=== PATIENT | male | born 1975 | race Caucasian/White ===

== ENCOUNTER 2021-11-20 09:40 | Observation (INO) | payer MEDICAID ==
[~2021-11-20] VITALS: Ht 170.2 cm; Wt 102.5 kg
[2021-11-20] VITALS (77 sets, daily range): BP systolic 76–136; BP diastolic 43–82
[2021-11-20 10:15] LABS: HEMATOCRIT 42.6 % (39.0-50.0); HEMOGLOBIN 15.1 g/dl (14.0-18.0); IMMATURE GRANULOCYTES 0.1 % (0.0-5.0); MEAN CELL VOLUME 94.7 fL CALC (80.0-100.0); MEAN CORPUSCULAR HGB 33.6 pG CALC (26.0-32.0); MEAN CORPUSCULAR HGB CONC 35.4 g/dL CAL (32.0-36.0); NEUT# 9.72 thou/uL (1.82-7.42); RED BLOOD COUNT 4.5 mill/uL (4.70-6.10)
[2021-11-20 10:30] LABS: ALBUMIN 4.6 g/dL (3.2-5.0); ALKALINE PHOSPHATASE 117 u/l (38-126); ANION GAP 15 (6-22 (CALC)); BILIRUBIN, TOTAL 0.8 mg/dL (0.0-1.4); BUN 12 mg/dL (9-20); BUN/CREATININE RATIO 15 (12-20 (CALC)); CARBON DIOXIDE 21 mmol/l (22-30); CHLORIDE 107 mmol/l (95-108); CREATININE 0.8 mg/dL (0.7-1.3); GFR FOR AFR.AMER. > 60 ML/MIN (>=60 (CALC)); GFR OTHER RACES > 60 ML/MIN (>=60 (CALC)); POTASSIUM 3.9 mmol/l (3.5-5.1); SGOT/AST 34 u/l (17-59); SODIUM 138 mmol/l (137-146); TOTAL PROTEIN 7.9 g/dL (6.3-8.2)
[2021-11-20 10:33] LABS: D-DIMER 0.25 mg/L (0.19-0.60)
[2021-11-20 10:34] LABS: PROTHROMBIN TIME 9.9 SECONDS (9.0-12.5)
[2021-11-20 10:39] LABS: MYOGLOBIN 25 ng/mL (0 - 121)
[2021-11-20 11:31] LABS: URINE BILIRUBIN - DIPSTICK NEGATIVE (NEGATIVE); URINE BLOOD DIPSTICK NEGATIVE (NEGATIVE); URINE COLOR YELLOW; URINE GLUCOSE - DIPSTICK NEGATIVE (NEGATIVE); URINE KETONE NEGATIVE (NEGATIVE); URINE LEUK ESTERASE NEGATIVE (NEGATIVE); URINE NITRITE - DIPSTICK NEGATIVE (Negative); URINE PROTEIN - DIPSTICK NEGATIVE (NEG-TRACE); URINE UROBILINOGEN - DIPSTICK 0.2 E.U./dL (0.2)
[2021-11-20] MEDS ORDERED: CELEBREX100 M1 PO (12:32)
[2021-11-20] MEDS ORDERED: ZANAFLEX4 M2 PO (12:33)
[2021-11-20] MEDS ORDERED: PREGABALIN50 MG PO (12:37)
[2021-11-20] MEDS ORDERED: PERCOCET 5/321 COMBO PO (12:39)
[2021-11-21] VITALS (45 sets, daily range): BP systolic 103–145; BP diastolic 62–94
[2021-11-21 04:55] LABS: HEMATOCRIT 39.6 % (39.0-50.0); MEAN CELL VOLUME 95.9 fL CALC (80.0-100.0); MEAN CORPUSCULAR HGB 33.9 pG CALC (26.0-32.0); MEAN CORPUSCULAR HGB CONC 35.4 g/dL CAL (32.0-36.0); RED BLOOD COUNT 4.13 mill/uL (4.70-6.10); RED CELL DISTRI WIDTH 12.2 % (11.5-15.5)
[2021-11-21 05:10] LABS: ALBUMIN 4.1 g/dL (3.2-5.0); ALKALINE PHOSPHATASE 109 u/l (38-126); ANION GAP 14 (6-22 (CALC)); BILIRUBIN, TOTAL 0.5 mg/dL (0.0-1.4); BUN 10 mg/dL (9-20); BUN/CREATININE RATIO 13 (12-20 (CALC)); CALCULATED LDLCHOLESTEROL 109 mg/dL (62-129 (CALC)); CARBON DIOXIDE 22 mmol/l (22-30); CHLORIDE 107 mmol/l (95-108); CHOLESTEROL HDL RATIO 6.3 (<4.4 (CALC)); CREATININE 0.7 mg/dL (0.7-1.3); GFR FOR AFR.AMER. > 60 ML/MIN (>=60 (CALC)); GFR OTHER RACES > 60 ML/MIN (>=60 (CALC)); HDL CHOLESTEROL 32 mg/dL (>=40); MAGNESIUM 1.9 mg/dL (1.6-2.3); SGOT/AST 28 u/l (17-59); SODIUM 138 mmol/l (137-146); TOTAL CHOLESTEROL 203 mg/dl (0-199); TOTAL PROTEIN 6.9 g/dL (6.3-8.2); TOTAL TRIGLYCERIDES 305 mg/dl (30-149); VLDL CHOLESTROL 61 mg/dl (5-56 (CALC))
[2021-11-21] MEDS ORDERED: XARELTO20 MG PO (08:51)
[2021-11-21] MEDS ORDERED: TOPROL XL50 MG PO (08:51)
== END 2021-11-21 10:15 | disposition home or self-care (01) ==
LOC: ED 09:40 → ED-I 11:47 → ED 11:56 → ICU 11:57
PROVIDERS: Family Medicine; ADMIT Internal Medicine; ATTEND Internal Medicine
DX: I48.91 Unspecified atrial fibrillation (principal); G70.00 Myasthenia gravis without (acute) exacerbation; G89.29 Other chronic pain; I10 Essential (primary) hypertension; Z72.0 Tobacco use
CPT/HCPCS: J1650